=== PATIENT | male | born 1975 | race Caucasian/White ===

== ENCOUNTER 2020-09-22 11:55 | Emergency (ER) | payer OTHER ==
[~2020-09-22] VITALS: Ht 172.7 cm; Wt 72.6 kg
[~2020-09-22 11:55] MED LIST: DIPH25CA83
[2020-09-22 12:04] VITALS: BP 162/92
[2020-09-22] MEDS ORDERED: KETOROLAC TROMETHAMINE 15 MG/ML VIAL ONE (13:14)
[2020-09-22] MEDS: KETOROLAC TROMETHAMINE INJ 30 MG/ML VIAL IM ONE (13:17)
[2020-09-22] MEDS ORDERED: HYDR-4209 PO (13:20)
[2020-09-22] MEDS ORDERED: CYCL5TAB PO (13:20)
--- NOTE | 2020-09-22 13:29 | NUR ---
RESULTS PROVIDED. PATIENT A/OX4, AMBULATORY WITH STEADY GAIT. Patient discharged to home in stable condition. Written and verbal after care instructions given. Patient verbalizes understanding of instruction.
== END 2020-09-22 13:29 | disposition home or self-care (01) ==
LOC: ER 12:01
DX: M54.42 Lumbago with sciatica, left side (principal); M51.26 Other intervertebral disc displacement, lumbar region; M51.36 Other intervertebral disc degeneration, lumbar region; M48.00 Spinal stenosis, site unspecified; I10 Essential (primary) hypertension; J45.909 Unspecified asthma, uncomplicated
CPT/HCPCS: 72131; 96372; 99284; J1885